=== PATIENT | female | born 1945 | race Caucasian/White ===

== ENCOUNTER 2023-08-05 13:41 | Outpatient (CLI) | payer MEDICARE | END 2023-08-05 13:42 | disposition home or self-care (01) | LOC: BICCT 13:41 | PROVIDERS: ATTEND Family Medicine Sports Medicine | DX: R16.0 Hepatomegaly, not elsewhere classified (principal); R18.8 Other ascites; K57.30 Diverticulosis of large intestine without perforation or abscess without bleeding; J90 Pleural effusion, not elsewhere classified | CPT/HCPCS: 74177 ==